=== PATIENT | female | born 1995 | race African-American/Black ===

== ENCOUNTER 2018-12-18 19:16 | Emergency (ER) | payer OTHER ==
[~2018-12-18] VITALS: Ht 162.5 cm; Wt 70.3 kg
[~2018-12-18 19:16] MED LIST: ADDERALL20 MG PO; ADDERALL30 MG PO; AMOXICILLIN500 M2 PO; AMOXICILLIN500 MG PO; AMOXIL250 M1 PO; ANAPROX DS550 MG PO; AUGMENTIN 875 M1 TAB PO; BACTROBAN OINT22 GM IRRIG; BENADRYL25 M1 PO; BENADRYL25 MG PO; BIAXIN500 MG PO; CLONIDINE0.2 MG PO; Catapres-Tts 10.1 MG PO; DEBROX 15 ML15 M1 OT; DEBROX 15 ML15 ML OT; DEPO PROVER150 MG/M1 IM; FLONASE0.05 MG/AC NS; IRON325 M1 PO; KEFLEX500 MG PO; LORTAB LIQUID5 ML PO; MOTRIN600 MG PO; NAPROSYN EC375 MG PO; NAPROSYN500 MG PO; PREDNICOT20 MG PO; PRENATAL1 TA3 PO; PROVENTIL0.09 MG/A1 INH; SEROQUEL100 MG PO; SEROQUEL400 MG PO; SUDAFED60 M1 PO; TYLENOL W/CODE480 ML PO; TYLENOL W/CODEI1 TA2 PO; WELLBUTRIN75 MG PO; ZOFRAN ODT4 MG SL; ZOLOFT100 MG PO; ZOLOFT50 MG PO
[2018-12-18 19:56] LABS: BILIRUBIN NEGATIVE (NEGATIVE); BLOOD NEGATIVE (NEGATIVE); CLARITY SL CLOUDY (CLEAR); COLOR YELLOW (YELLOW); GLUCOSE NEGATIVE (NEGATIVE); KETONE NEGATIVE (NEGATIVE); LEUKO ESTERASE NEGATIVE (NEGATIVE); NITRITE NEGATIVE (NEGATIVE); SPECIFIC GRAVITY 1.025 (1.005-1.030); UROBILINOGEN 0.2 E.U./dl (0.2-1.0)
[2018-12-18 20:09] LABS: BACTERIA 1+; MUCOUS 2+
[2018-12-21 11:08] LABS: GONOCOCCUS BY NAA Negative (Negative)
== END 2018-12-18 20:12 | disposition home or self-care (01) ==
LOC: ED 19:16
PROVIDERS: Student in an Organized Health Care Education/Training Program
DX: Z20.2 Contact with and (suspected) exposure to infections with a predominantly sexual mode of transmission (principal); Z13.89 Encounter for screening for other disorder; Z88.6 Allergy status to analgesic agent; Z91.030 Bee allergy status; Z91.040 Latex allergy status

== ENCOUNTER → 2019-09-30 | Outpatient (CLI) | payer OTHER | END | disposition home or self-care (01) | LOC: US 14:06 | DX: Z34.81 Encounter for supervision of other normal pregnancy, first trimester (principal); Z3A.12 12 weeks gestation of pregnancy ==

== ENCOUNTER → 2019-11-19 | Outpatient (CLI) | payer OTHER | END | disposition home or self-care (01) | LOC: US 13:00 | DX: Z34.82 Encounter for supervision of other normal pregnancy, second trimester (principal); Z3A.17 17 weeks gestation of pregnancy ==

== ENCOUNTER → 2019-11-28 | Outpatient (CLI) | payer OTHER | END | disposition home or self-care (01) | LOC: US 12:40 | DX: Z34.82 Encounter for supervision of other normal pregnancy, second trimester (principal); Z3A.20 20 weeks gestation of pregnancy ==

== ENCOUNTER → 2019-12-17 | Outpatient (CLI) | payer OTHER | END | disposition home or self-care (01) | LOC: US 14:00 | DX: O26.892 Other specified pregnancy related conditions, second trimester (principal); Z3A.23 23 weeks gestation of pregnancy ==

== ENCOUNTER → 2020-01-16 | Outpatient (CLI) | payer OTHER | END | disposition home or self-care (01) | LOC: US 11:00 | DX: Z34.82 Encounter for supervision of other normal pregnancy, second trimester (principal); Z3A.23 23 weeks gestation of pregnancy ==

== ENCOUNTER → 2020-01-23 | Outpatient (CLI) | payer OTHER ==
[2020-01-23 15:14] LABS: BASO % 0.4 % (0.0-1.0); EOS # 0.1 10*3/uL (0.0-0.4); EOS % 0.7 % (1.0-4.0); HEMATOCRIT 29.9 % (37.0-47.0); LYMPH # 1.5 10*3/uL (1.3-4.4); LYMPH % 20.7 % (27.0-41.0); MEAN CELL VOLUME 102.4 fl (81.0-99.0); MEAN CORPUSCULAR HGB 33.6 pg (27.0-31.0); MEAN CORPUSCULAR HGB CONC 32.8 g/dl (33.0-37.0); MEAN PLATELET VOLUME 10.6 fl (9.6-12.3); MONO # 0.4 10*3/uL (0.1-1.0); MONO % 5.8 % (3.0-9.0); NEUT # 5.2 10*3/uL (2.3-7.9); NEUT % 71.8 % (47.0-73.0); PLATELET COUNT AUTOMATED 214 10*3/uL (130-400); RED BLOOD COUNT 2.92 10*6/uL (4.10-5.10); RED CELL DISTRI WIDTH 12.3 % (0-14.5); WHITE BLOOD COUNT 7.3 10*3/uL (4.8-10.8)
[2020-01-23 15:27] LABS: IRON 89 ug/dL (50-170); TOTAL IRON BINDING CAPACITY 337 ug/dl (250-450)
[2020-01-23 15:38] LABS: FERRITIN 29.7 ng/mL (10.0-291.0)
== END | disposition home or self-care (01) ==
LOC: LAB 14:23
PROVIDERS: Obstetrics & Gynecology
DX: D53.9 Nutritional anemia, unspecified (principal)

== ENCOUNTER → 2020-02-09 | Outpatient (CLI) | payer OTHER | END | disposition home or self-care (01) | LOC: US 14:00 | DX: Z34.83 Encounter for supervision of other normal pregnancy, third trimester (principal); Z3A.31 31 weeks gestation of pregnancy ==

== ENCOUNTER → 2020-03-08 | Outpatient (CLI) | payer OTHER | END | disposition home or self-care (01) | LOC: US 11:00 | PROVIDERS: ATTEND Obstetrics & Gynecology | DX: Z34.83 Encounter for supervision of other normal pregnancy, third trimester (principal); Z3A.34 34 weeks gestation of pregnancy ==

== ENCOUNTER → 2020-03-22 | Outpatient (CLI) | payer OTHER | END | disposition home or self-care (01) | LOC: US 14:30 | PROVIDERS: ATTEND Obstetrics & Gynecology | DX: Z34.83 Encounter for supervision of other normal pregnancy, third trimester (principal); Z3A.37 37 weeks gestation of pregnancy ==

== ENCOUNTER → 2021-12-20 | Outpatient (CLI) | payer OTHER | END | disposition home or self-care (01) | LOC: LAB 15:06 | PROVIDERS: ATTEND Nurse Practitioner Women's Health | DX: Z20.6 Contact with and (suspected) exposure to human immunodeficiency virus [HIV] (principal) ==

== ENCOUNTER 2022-05-29 11:38 | Emergency (ER) | payer OTHER ==
[~2022-05-29] VITALS: Ht 162.5 cm; Wt 74.8 kg
[~2022-05-29 11:38] MED LIST changes: +'XANAX0.5 MG PO; +Percocet 325 MG1 TAB PO; +SERTRALINE HYDR50 MG PO
== END 2022-05-29 14:18 | disposition home or self-care (01) ==
LOC: ED 11:38
DX: J06.9 Acute upper respiratory infection, unspecified (principal); Z20.822 Contact with and (suspected) exposure to COVID-19; Z88.8 Allergy status to other drugs, medicaments and biological substances; Z91.040 Latex allergy status; Z91.030 Bee allergy status; Z79.899 Other long term (current) drug therapy; Z90.89 Acquired absence of other organs

== ENCOUNTER 2022-06-15 12:36 | Emergency (ER) | payer OTHER ==
[~2022-06-15] VITALS: Ht 162.5 cm; Wt 77.1 kg
[2022-06-15] MEDS ORDERED: GUAIFENESIN PS PO (14:14)
[2022-06-15] MEDS ORDERED: AMOXICILLIN500 M2 PO (14:14)
== END 2022-06-15 15:02 | disposition home or self-care (01) ==
LOC: ED 12:36
DX: H66.91 Otitis media, unspecified, right ear (principal); J10.1 Influenza due to other identified influenza virus with other respiratory manifestations; R09.89 Other specified symptoms and signs involving the circulatory and respiratory systems; Z91.030 Bee allergy status; Z91.041 Radiographic dye allergy status; Z88.8 Allergy status to other drugs, medicaments and biological substances; Z20.822 Contact with and (suspected) exposure to COVID-19

== ENCOUNTER 2024-02-25 15:25 | Emergency (ER) | payer OTHER ==
[~2024-02-25] VITALS: Ht 165.1 cm; Wt 81.2 kg
[~2024-02-25 15:25] MED LIST changes: +GUAIFENESIN PS PO
[2024-02-25] MEDS ORDERED: MELATONIN5 M1 SL (16:05)
[2024-02-25] MEDS ORDERED: PREDNISONE50 MG PO (16:09)
[2024-02-25] MEDS ORDERED: methylPREDNISolone sod succ 125 MG VIAL IM ONE (16:10)
== END 2024-02-25 16:16 | disposition home or self-care (01) ==
LOC: ED 15:25
DX: T63.441A Toxic effect of venom of bees, accidental (unintentional), initial encounter (principal); J45.909 Unspecified asthma, uncomplicated; F90.9 Attention-deficit hyperactivity disorder, unspecified type; F32.A Depression, unspecified; Z88.5 Allergy status to narcotic agent; Z91.030 Bee allergy status; Z91.040 Latex allergy status; Z98.890 Other specified postprocedural states; Y92.009 Unspecified place in unspecified non-institutional (private) residence as the place of occurrence of the external cause

== ENCOUNTER 2025-03-06 11:23 | Emergency (ER) | payer OTHER ==
[~2025-03-06] VITALS: Ht 165.1 cm; Wt 80.7 kg
[~2025-03-06 11:23] MED LIST changes: +MELATONIN5 M1 SL; +PREDNISONE50 MG PO
[2025-03-06] MEDS ORDERED: VRAYLAR1.5 MG PO (11:33)
[2025-03-06] MEDS ORDERED: MELATONIN (11:33)
[2025-03-06] MEDS ORDERED: VIBRAMYCIN100 MG PO (11:48)
[2025-03-06] MEDS ORDERED: Water, Sterile 10 ML VIAL ONE (12:09)
== END 2025-03-06 12:02 | disposition home or self-care (01) ==
LOC: ED 11:23
DX: A64 Unspecified sexually transmitted disease (principal); Z88.5 Allergy status to narcotic agent; Z91.040 Latex allergy status; Z91.030 Bee allergy status